=== PATIENT | female | born 1995 | race Caucasian/White ===

== ENCOUNTER → 2020-03-22 | Outpatient (CLI) | payer SELFPAY ==
--- NOTE | 2020-03-22 13:47 | RADIOLOGY REPORT (SQ) ---
EXAM DESCRIPTION: U/S [id number] TRNABD 1GES W/ODOP IMAGES COMPLETED DATE/TIME: 03/22/2020 1:08 pm REASON FOR STUDY: ENCTR FOR SUPERVISION OF NORMAL FIRST , FIRST TRIMESTER (Z34.01) Z34.01 ENCNTR FOR SUPRVSN OF NORMAL FIRST PREG, FIRST TRIMES COMPARISON: None. TECHNIQUE: Transabdominal static and realtime grayscale images acquired of the pelvis. Additional se lected spectral and color Doppler images recorded. All images stored on PACs. bHCG: Unknown CLINICAL DATES: LMP 01/21/2020 8 weeks 5 days LIMITATIONS: None. FINDINGS: FETUS: Single Living intrauterine . ULTRASOUND EGA: 7 weeks 3 days ULTRASOUND JODI: 11/05/2020 EFW: Not applicable less than 20 weeks. CRL: 1.3 cm FHR: 165 beats per minute. SURVEY: Too early to assess. AMNIOTIC FLUID: Adequate amount. PLACENTA: Not yet developed due to early gestation. SUBCHORIONIC BLEED: No. SIZE OF BLEED: Not applicable. UTERUS: No masses. No anomalies. CERVICAL LENGTH: 2.2 cm. Closed. RIGHT ADNEXA: Ovary 15 mm corpus luteum, and with normal vascular flow. 2.9 x 2 x 2 cm. No adnexal free fluid. No adnexal masses. LEFT ADNEXA: Normal ovary with normal vascular flow. 2.8 x 2 x 1.5 cm. No adnexal free fluid. No adnexal masses. FREE FLUID: None. OTHER: No other significant finding. IMPRESSION: LIVING INTRAUTERINE . EGA 7 weeks 3 days Trimester of : First trimester - 0 to 13 weeks. TECHNICAL DOCUMENTATION: JOB ID: [id number] [employer]- All Rights Reserved rev-12/11 Reading location - IP/workstation name: [email or web address]
== END ==
LOC: RAD 12:43
PROVIDERS: ATTEND Midwife
DX: O34.81 Maternal care for other abnormalities of pelvic organs, first trimester (principal); N83.11 Corpus luteum cyst of right ovary; Z3A.01 Less than 8 weeks gestation of pregnancy
CPT/HCPCS: 76801

== ENCOUNTER 2020-03-25 01:33 | Emergency (ER) | payer SELFPAY ==
[2020-03-25 02:01] VITALS: BP 118/84
== END 2020-03-25 03:24 | disposition left against medical advice (07) ==
LOC: ER 01:33
DX: Z53.21 Procedure and treatment not carried out due to patient leaving prior to being seen by health care provider (principal)